=== PATIENT | female | born 2000 | race Caucasian/White ===

== ENCOUNTER 2020-04-16 10:24 | Inpatient (IN) ==
[2020-04-16] MEDS ORDERED: OXYTOCIN 30 UNITS/500 ML BAG IV PRN ×2 (13:14)
[2020-04-16] MEDS ORDERED: CEFAZOLIN 1000MG 1,000 MG/7.5 ML SYR IV PRN (13:14)
[2020-04-16 13:45] LABS: Hematocrit (blood only) 27.4 % (37-47); Hemoglobin 8.2 g/dL (12.0-16.0); Mean Corpuscular Hemoglobin 20.9 pg (25-34); Mean Corpuscular Volume 69.7 fL (80-100); Mean Platelet Volume 8.2 fL (7.4-10.4); Nucleated RBC # (auto) 0.11 K/uL (0-0); Nucleated RBC % (auto) 0.8 %; Platelet Count 380 K/uL (130-400); RDW Coefficient of Variation 17.6 % (11.5-14.5); RDW Standard Deviation 44.8 fL (36.4-46.3); Red Blood Count 3.93 M/uL (4.2-5.4); White Blood Count 12.81 K/uL (4.8-10.8)
[2020-04-16 13:52] LABS: Mean Corpuscular Hgb Conc 29.9 g/dL (32-36)
[2020-04-16] MEDS: LACTATED RINGER'S 1,000 ML IV PRN ×2 (13:53→19:58)
[2020-04-16] MEDS ORDERED: CEFAZOLIN 2000MG 2,000 MG/15 ML SYR IV ONE (14:00)
[2020-04-16] MEDS ORDERED: SODIUM CHLORIDE 0.9% 250 ML IV PRN (15:30)
--- NOTE | 2020-04-16 17:32 | History & Physical Report ---
Date of Service April 16, 2020 Assessment & Plan (1) Supervision of normal intrauterine in multigravida: 19yo at 39.1 weeks GA. Presents for elective IOL. 1. Fetus: Cat 1 2. Labor: Will start oxytocin and AROM when able 3. Vitals: WNL 4. GBS positive: Ancef for PCN allergy 5. Epidural PRN Admission and Anticipated Discharge Date Admission Date: April 16, 2020 History of Present Illness Primary Care Provider: NO PCP 19yo at 39.1 weeks GA. Presents for elective IOL. complicated by moderate anemia at 28 week labs and GBS positive. Reports prior uncomplicated . OB Labs: Blood Type O Positive 09/17/19 Antibody Screen NEGATIVE 09/17/19 Hemoglobin 9.5 g/dL (12.0-16.0) L 01/29/20 Hematocrit 30.6 % (37-47) L 01/29/20 Mean Corpuscular Volume 84.7 fL (80-100) 09/17/19 Platelet Count 376 K/uL (130-400) 09/17/19 Rubella IgG Antibody Immune (Immune) 09/17/19 Rapid Plasma Reagin Nonreactive (Nonreactive) 09/17/19 Hepatitis B Surface Antigen Neg (Neg) 09/17/19 HIV (1&2) Ab and P24 Ag, 4th Gener Neg (Neg) 09/17/19 Glucose 1 Hour 50 gm Load 87 mg/dl (70-130) 01/29/20 OB Optional Labs: Chlamydia trachomatis RNA NOT DETECTED (NOT DETECTED) 09/17/19 Neisseria gonorrhoeae RNA NOT DETECTED (NOT DETECTED) 09/17/19 Thyroid Stimulating Hormone (TSH) 2.530 uIu/ml (0.300-4.500) 10/11/18 Allergies Allergy/AdvReac Type Severity Reaction Status Date / Time amoxicillin Allergy Mild Hives Verified 04/16/20 12:44 gluten Allergy Mild Gastrointestinal Verified 04/16/20 12:44 Upset Home Medications Home Medications Medication Instructions Recorded Confirmed Type prenat.vits,oleg,jpy-ivcl-kyzle 1 tab PO DAILY 09/11/19 04/16/20 History Patient History Medical History (Updated 11/01/19 @ 15:34 by Roger Velasquez Jr, MD, FACOG) Adverse reaction to anesthetic agent Vomiting and Nausea Breast lump Breast lump Celiac disease Dysfunctional uterine bleeding Encounter for pre-operative examination Fibroadenoma of left breast GERD (gastroesophageal reflux disease) History of ovarian cyst Migraine Nausea and vomiting after administration of anesthetic agent Varicella vaccination Surgical History H/O breast surgery (06/26/19) Excision of left breast mass. Dr. Jones 06/26/19 H/O endoscopy H/O laparoscopy H/O oral surgery FOR EXTRA TOOTH REMOVAL Hx of cholecystectomy Family History Grandmother (Maternal) Endometriosis Aunt Endometriosis Breast cancer great aunt mom's side and dad's side Mother Thyroid disease Grandmother (Paternal) Breast cancer great grandmother Family/Other Colorectal cancer Great Granfather Social History Smoking Status: Never smoker Second Hand Exposure: No; Hx Alcohol Use: No Hx Substance Use: No Preferred Language: Latvian Communication Ability: Effective Activities Director Scouting Required: No Beliefs That Will Affect Care: None marital status: marital status details: Alessio Gifford (25) [phone] Current Living Situation: Spouse Current Living Situation Comment: lives with FOB, son and 2 dogs current occupational status: employed current occupation: Second Chef Other Information That Helps Us Care for You: No Feels Safe at Home: Yes Safety Concerns: Feels Safe At This Time Assistive Devices: None Physical Exam Constitutional: WD/WN, vitals as above Eyes: PERRL, conjunctivae normal, anicteric sclerae ENMT: external ear and nose normal, oropharynx normal Neck: trachea midline, no thyromegaly Gastrointestinal (Abdomen): Percussion/Palpation: abdomen soft; abdomen nontender, no guarding and abdomen not rigid Psychiatric: A+Ox3, euthymic affect Genitourinary: Manual OB Exam: + cervical dilation (2.5), + cervical effacement 70% and + station -2 OB Exam Monitor Tracing: + external FHT monitor used, + external uterine monitor used, + category I and + normal FHT variability; no early decelerations present, no late decelerations present and no variable decelerations Results & Data ([facility]) Vital Signs (Past 12 Hours) Vital Signs Temp Pulse Resp BP Pulse Ox 04/16/20 17:21 105 H 100 04/16/20 17:16 108 H 100 04/16/20 17:11 108 H 100 04/16/20 17:06 101 H 100 04/16/20 17:01 97 H 100 04/16/20 16:56 108 H 100 04/16/20 16:51 106 H 100 04/16/20 16:50 96 H 109/64 04/16/20 16:46 99 H 100 04/16/20 16:41 97 H 100 04/16/20 16:36 108 H 100 04/16/20 16:31 102 H 100 04/16/20 16:26 103 H 100 04/16/20 16:21 107 H 100 04/16/20 16:16 106 H 100 04/16/20 16:11 100 H 100 04/16/20 15:50 96 H 108/65 04/16/20 15:00 37.0 C 20 04/16/20 14:51 94 H 107/62 04/16/20 13:49 97 H 116/70 04/16/20 12:42 36.8 C 109 H 20 124/77 Coding Level of Care Code None Diagnoses Supervision of normal intrauterine in multigravida Z34.80
--- NOTE | 2020-04-16 19:54 | Labor Progress Brief Note ---
Date of Service April 16, 2020 Subjective Reason For Note: Routine Evaluation Assessment & Plan (1) Supervision of normal intrauterine in multigravida: 19yo at 39.1 weeks GA. Presents for elective IOL. 1. Fetus: Cat 1 2. Labor: Continue oxytocin, AROM clr 3. Vitals: WNL 4. GBS positive: Ancef for PCN allergy 5. Epidural PRN Admission and Anticipated Discharge Date Admission Date: April 16, 2020 Physical Exam Genitourinary: Manual OB Exam: + cervical dilation (4), + cervical effacement 70% and + station -2 OB Exam Monitor Tracing: + external FHT monitor used, + external uterine monitor used, + category I and + normal FHT variability; no early decelerations present, no late decelerations present and no variable decelerations Lymphatic: no cervical or axillary lymphadenopathy Results & Data ([facility]) Vital Signs (Past 12 Hours) Vital Signs Temp Pulse Resp BP Pulse Ox 04/16/20 19:50 105 H 114/60 04/16/20 19:37 100 H 99 04/16/20 19:32 93 H 100 04/16/20 19:27 97 H 100 04/16/20 19:22 101 H 100 04/16/20 19:17 93 H 100 04/16/20 19:12 102 H 100 04/16/20 19:08 36.5 C 18 04/16/20 19:07 106 H 100 04/16/20 19:02 102 H 100 04/16/20 18:57 96 H 99 04/16/20 18:52 99 H 99 04/16/20 18:49 103 H 106/62 04/16/20 18:47 99 H 100 04/16/20 18:42 105 H 99 04/16/20 18:37 109 H 100 04/16/20 18:32 106 H 100 04/16/20 18:27 101 H 100 04/16/20 18:22 111 H 100 04/16/20 18:17 101 H 99 04/16/20 18:12 107 H 100 04/16/20 18:07 99 H 100 04/16/20 18:01 97 H 100 04/16/20 17:56 103 H 100 04/16/20 17:51 96 H 111/56 L 100 04/16/20 17:46 95 H 100 04/16/20 17:41 111 H 100 04/16/20 17:36 102 H 100 04/16/20 17:31 101 H 100 04/16/20 17:26 108 H 100 04/16/20 17:21 105 H 100 04/16/20 17:16 108 H 100 04/16/20 17:11 108 H 100 04/16/20 17:06 101 H 100 04/16/20 17:01 97 H 100 04/16/20 16:56 108 H 100 04/16/20 16:51 106 H 100 04/16/20 16:50 96 H 109/64 04/16/20 16:46 99 H 100 04/16/20 16:41 97 H 100 04/16/20 16:36 108 H 100 04/16/20 16:31 102 H 100 04/16/20 16:26 103 H 100 04/16/20 16:21 107 H 100 04/16/20 16:16 106 H 100 04/16/20 16:11 100 H 100 04/16/20 15:50 96 H 108/65 04/16/20 15:00 37.0 C 20 04/16/20 14:51 94 H 107/62 04/16/20 13:49 97 H 116/70 04/16/20 12:42 36.8 C 109 H 20 124/77 Coding Level of Care Code None Diagnoses Supervision of normal intrauterine in multigravida Z34.80
--- NOTE | 2020-04-16 23:49 | Delivery Summary ---
Vaginal Delivery Summary Date of Service April 16, 2020 Vaginal Delivery Summary Vaginal Delivery Summary: Pre-delivery diagnoses: 19yo @ 39 3/7, spont labor Post-delivery diagnoses: same Procedure: spontaneous vaginal delivery, repair of 2nd degree laceration Surgeon: Valentina Spivey DO Complications: none Findings: Viable . Apgars: 8/9 . Weight pending, please see nursery records. Estimated blood loss: 300ml Description of delivery: The patient progressed to complete without anesthesia. She then began to push. I was called in to help with delivery, as on-call physician was taking care of another emergent patient. She spontaneously va ginally delivered a viable from the cephalic presentation. Nuchal x 1, reduced. The head delivered in ELIZABETH position. The anterior shoulder delivered, followed by the posterior shoulder, followed by the body. The baby was placed on mother's abdomen and a spontaneous cry was heard. Delayed cord clamping was employed, and the cord was doubly clamped and cut. Cord blood was obtained. The placenta was delivered spontaneously intact with a 3-vessel cord. The uterus and vagina were swept of clots and debris. IV pitocin was given. The uterus became firm. The cervix, vagina, and perineum were inspected and a 2nd degree laceration was noted. Repaired in standard fashion with 3-0 vicryl. Excellent hemostasis was observed. The mother and baby are recovering in stable and good condition in the room. Sponge, needle and instrument counts were correct x 2. Valentina Spivey DO [facility] [place] Vaginal Delivery Charge Vaginal Delivery Codes: 40068 global code for the antepartum, delivery, and post-
[2020-04-17] MEDS ORDERED: bisacodyL 10 MG SUPP PR PRN (00:16)
[2020-04-17] MEDS ORDERED: OXYTOCIN 30 UNITS/500 ML BAG IV PRN (00:16)
[2020-04-17] MEDS ORDERED: OXYCODONE/ACETAMINOPHEN 5mg/325mg TAB PO PRN (00:16)
[2020-04-17] MEDS ORDERED: DIPHTHERIA/TETANUS/PERTUSSIS 0.5 ML SYR/VIAL IM ONE (00:16)
[2020-04-17] MEDS ORDERED: BENZOCAINE 20% AER SPR 82.5 GM CAN EXT PRN (00:16)
[2020-04-17] MEDS ORDERED: SUPERCREAM 0.870% 15 GM JAR EXT PRN (00:16)
[2020-04-17] MEDS ORDERED: ACETAMINOPHEN 325 MG TAB PO PRN (00:16)
[2020-04-17] MEDS ORDERED: HYDROCORTISONE ACETATE 25 MG SUPP PR PRN (00:16)
--- NOTE | 2020-04-17 05:44 | Obstetrical Progress Note ---
Date of Service April 17, 2020 Assessment & Plan (1) : S/p after elective IOL, Day 1 - Feels well today. Eating well, voiding well, ambulating well. - Pain well-controlled with ibuprofen 600mg Q4H PRN. - Vital signs reviewed and WNL. - Hemoglobin reviewed. 8.2 --> 7.1 (today). - started Iron sulfate BID today - Blood Type: O+, antibody negative, GBS negative, Rubella Immune, COVID-19 negative - Continue routine post- care: encourage ambulation, monitor and control pain with Motrin PRN, continue regular OB diet, monitor lochia - Encourage breast feeding. - After discharge, will have 6-wk follow-up with [facility] [employer]NA[facility] [employer] Admission and Anticipated Discharge Date Admission Date: April 16, 2020 Supervising Physician Co-Signing Physician Notes Patient seen and evaluated and agree with the above findings and plan. Routine care. H/H at 7.1/24.1 today from 8.2/27.4 on admission. Denies any anemia symptoms. On iron BID Subjective HPI Raffaele Gifford is a 19 y/o female who is PPD 1 spontaneous vaginal delivery after elective IOL at 39 3/7 weeks. She reports feeling well overall this morning. No abdominal cramping and 1-4/10 pain well managed on analgesics. Voiding well. Tolerating meals overnight without difficulty. Patient has been able to ambulate some. passing gas and no bowel movement. Has persistent lochia with some improvement this morning. Currently bottle feeding with formula. Review of Systems Review of Systems: ROS Denies fever or chills. Denies dizziness or near-syncope. Denies shortness of breath or cough. Denies chest pain. Denies breast pain. Denies dysuria. Denies leg pain or leg swelling. Physical Exam Physical Exam: PE General: Alert, oriented. No acute distress. Cardiac: Regular rate and rhythm. No murmurs. Respiratory: Clear to auscultation bilaterally a/p, no wheezes/rales/rhonchi. No increased work of breathing. Symmetrical chest rise. No respiratory distress. Abdomen: Soft, nontender, nondistended. Bowel sounds present. Uterus: Uterine fundus firm, palpable 1 cm below umbilicus. Lower Extremities: No lower extremity edema or swelling. No deep calf pain. Jason's negative bilaterally. Results & Data ([facility]) Vital Signs (Past 12 Hours) Vital Signs Temp Pulse Pulse Resp BP BP Pulse Ox 04/17/20 02:50 36.6 C 105 H 18 127/84 99 04/17/20 01:22 104 H 102/57 L 04/17/20 01:07 105 H 106/63 04/17/20 00:52 101 H 106/58 L 04/17/20 00:37 103 H 98/54 L 04/17/20 00:22 95 H 101/58 L 04/17/20 00:07 99 H 99/58 L 04/16/20 23:52 104 H 102/59 L 04/16/20 23:45 104 H 104/57 L 04/16/20 23:38 121 H 114/60 04/16/20 23:20 121 H 109/56 L 04/16/20 20:49 98 H 118/71 04/16/20 19:59 36.8 C 04/16/20 19:50 105 H 114/60 04/16/20 19:37 100 H 99 04/16/20 19:32 93 H 100 04/16/20 19:27 97 H 100 04/16/20 19:22 101 H 100 04/16/20 19:17 93 H 100 04/16/20 19:12 102 H 100 04/16/20 19:08 36.5 C 18 04/16/20 19:07 106 H 100 04/16/20 19:02 102 H 100 04/16/20 18:57 96 H 99 04/16/20 18:52 99 H 99 04/16/20 18:49 103 H 106/62 04/16/20 18:47 99 H 100 04/16/20 18:42 105 H 99 04/16/20 18:37 109 H 100 04/16/20 18:32 106 H 100 04/16/20 18:27 101 H 100 04/16/20 18:22 111 H 100 04/16/20 18:17 101 H 99 04/16/20 18:12 107 H 100 04/16/20 18:07 99 H 100 04/16/20 18:01 97 H 100 04/16/20 17:56 103 H 100 04/16/20 17:51 96 H 111/56 L 100 04/16/20 17:46 95 H 100 04/16/20 17:41 111 H 100 Resident Activity Tracking Resident Involvement: Resident Care Provided Care Provided: OB Delivery
[2020-04-17 05:51] LABS: Hematocrit (blood only) 24.1 % (37-47); Hemoglobin 7.1 g/dL (12.0-16.0)
[2020-04-17] MEDS: DOCUSATE SODIUM 100 MG CAP PO SCH ×2 (07:37→20:35)
[2020-04-17] MEDS: PRENATAL VITAMIN 1 TAB PO SCH (07:37)
[2020-04-17] MEDS: IBUPROFEN 600 MG TAB PO PRN ×2 (07:38→16:25)
[2020-04-17] MEDS: FERROUS SULFATE 325 MG TAB PO SCH (16:25)
[2020-04-17] MEDS ORDERED: bisacodyL 5 MG TABEC PO SCH (20:00)
--- NOTE | 2020-04-18 04:46 | Obstetrical Progress Note ---
Date of Service April 18, 2020 Assessment & Plan (1) : S/p after elective IOL, Day 2 - Feels well today. Eating well, voiding well, ambulating well. - Pain well-controlled with ibuprofen 600mg Q4H PRN. - Vital signs reviewed and WNL. - Hemoglobin reviewed. 8.2 --> 7.1 --> 6.6 (today) - started Iron sulfate BID yesterday - patient mildly hypotensive and intermittently tachycardic but otherwise no symptoms, feels well - will continue Iron supplement BID after discharge, as well as PRN miralax for constipation - Blood Type: O+, antibody negative, GBS negative, Rubella Immune, COVID-19 negative - Continue routine post- care: encourage ambulation, monitor and control pain with Motrin PRN, continue regular OB diet, monitor lochia - Patient has elected to bottle feed with formula - Went over discharge instructions today - After discharge, will have 6-wk follow-up with [facility] Admission and Anticipated Discharge Date Admission Date: April 16, 2020 Supervising Physician Co-Signing Physician Notes Resident Physician Supervision Note: I was present with Dr. Bah during the history and exam. I discussed the case with the resident and agree with the findings and plan as documented in the note. Any exceptions or clarifications are listed here: PPD#2 doing well. Hgb has been low, but vitals stable and she is asymptomatic. No weakness/dizziness. She is taking iron. I offered blood transfusion, but she feels that since she is not symptomatic, she does not desire transfusion at this time. DC instructions reviewed, followup in office . Documented By: Valentina Spivey, Subjective HPI Raffaele Gifford is a 19 y/o female who is PPD 2 spontaneous vaginal delivery after elective IOL at 39 3/7 weeks. She reports feeling well overall this morning. No abdominal cramping and 0-2/10 pain well managed on analgesics. Voiding well. Tolerating meals overnight without difficulty. Patient has been able to ambulate some. passing gas and no bowel movement. Has persistent lochia with some improvement this morning. Currently bottle feeding with formula. Review of Systems Review of Systems: ROS Denies fever or chills. Denies dizziness or near-syncope. Denies shortness of breath or cough. Denies chest pain. Denies breast pain. Denies dysuria. Denies leg pain or leg swelling. Physical Exam Physical Exam: PE General: Alert, oriented. No acute distress. Cardiac: Regular rate and rhythm. No murmurs. Respiratory: Clear to auscultation bilaterally a/p, no wheezes/rales/rhonchi. No increased work of breathing. Symmetrical chest rise. No respiratory distress. Abdomen: Soft, nontender, nondistended. Bowel sounds present. Uterus: Uterine fundus firm, palpable 4 cm below umbilicus. Lower Extremities: No lower extremity edema or swelling. No deep calf pain. Jason's negative bilaterally. Results & Data ([facility]) Vital Signs (Past 12 Hours) Vital Signs Temp Pulse Resp BP Pulse Ox 04/17/20 23:36 36.6 C 92 H 18 97/62 L 98 04/17/20 19:50 36.6 C 96 H 18 101/64 Resident Activity Tracking Resident Involvement: Resident Care Provided Care Provided: OB Delivery
[2020-04-18 06:09] LABS: Hematocrit (blood only) 23.4 % (37-47); Hemoglobin 6.6 g/dL (12.0-16.0)
[2020-04-18] MEDS: DOCUSATE SODIUM 100 MG CAP PO SCH (08:44)
[2020-04-18] MEDS: PRENATAL VITAMIN 1 TAB PO SCH (08:44)
[2020-04-18] MEDS: FERROUS SULFATE 325 MG TAB PO SCH (08:44)
[2020-04-18] MEDS: IBUPROFEN 600 MG TAB PO PRN (08:45)
[2020-04-18 10:07] VITALS: BP 103/65; PULSE 82; TEMP 97.7; O2SAT 99
== END 2020-04-18 12:05 | disposition home or self-care (01) | DRG 807 ==
LOC: 4S1 12:35 → 4S2 04-17 02:39

== ENCOUNTER 2024-04-04 07:55 | Inpatient (IN) ==
[2024-04-04] MEDS ORDERED: LIDOCAINE 1% LOCAL 20 ML VIAL INFIL PRN (08:02)
[2024-04-04] MEDS ORDERED: OXYTOCIN 30 UNITS/NSS 30 UNITS/500 ML BAG IV PRN ×2 (08:02→18:41)
[2024-04-04] MEDS ORDERED: CALCIUM CARBONATE 500 MG CHEWABLE TAB PO PRN (08:02)
[2024-04-04 08:50] LABS: Hematocrit (blood only) 30.4 % (37.0-47.0); Hemoglobin 9.5 g/dl (12.0-16.0); Mean Corpuscular Hemoglobin 22.9 pg (25.0-34.0); Mean Corpuscular Hgb Conc 31.3 g/dL (32.0-36.0); Mean Corpuscular Volume 73.4 fL (80.0-100.0); Mean Platelet Volume 8.4 fL (9.4-12.4); Nucleated RBC # (auto) 0.03 K/uL (0.00-0.12); Nucleated RBC % (auto) 0.3 %; Platelet Count 406 K/uL (130-400); RDW Coefficient of Variation 15.5 % (11.5-14.5); RDW Standard Deviation 40.6 fL (36.4-46.3); Red Blood Count 4.14 M/uL (4.20-5.40); White Blood Count 11.41 K/ul (4.8-10.8)
--- NOTE | 2024-04-04 09:27 | History & Physical Report ---
Date of Service April 04, 2024 Assessment & Plan (1) Encounter for supervision of normal in multigravida, antepartum: (2) LGA (large for gestational age) fetus affecting mother, antepartum: (3) Hypothyroidism during : Plan Raffaele is a 23 y/o female currently at 39W1D GA with an AQUILES 04/10/24 as determined by LMP who is here for induction. Her was complicated by hypothyroidism. GBS negative. Pt is not currently having regular contractions, but presenting at 4 cm dilated. Hbg at admission was 9.5. Starting pitocin Pt declining epidural at this time Monitor vitals and pain Ordered cross and match due to Hbg at 9.5 prior to delivery Admission and Anticipated Discharge Date Admission Date: April 04, 2024 History of Present Illness Primary Care Provider: NO PCP Raffaele is a 23 y/o female currently at 39W1D GA with an AQUILES 04/10/24 as determined by LMP who is here for induction. Her was complicated by hypothyroidism. irregular contractions; feeling movement; no fluid loss; no bloody show External FHT and external uterine monitors used; Category 1 tracing; moderate FHT variability. Had regular appointments with OB. Labs: (08/31/23) Blood type: O positive Antibody screen: Negative H.5 (today) Hct: 30.4 (today) WBC: 11.4 (today) Plt: 406 (today) Rubella: Immune VDRL/RPR: Non reactive Gonorrhea: Not detected Chlamydia: Not detected HIV: Nonreactive HbSAg: Non reactive GBS: Negative Other screens: Carrier for Gaucher disease and PKD cff-DNA: _ (see scanned documents) CF: Low risk-mln SMA: low risk Allergies Allergy/AdvReac Type Severity Reaction Status Date / Time amoxicillin Allergy Intermediate Hives Verified 04/04/24 08:22 gluten AdvReac Intermediate Gastrointestinal Verified 04/04/24 08:22 Upset Home Medications Medication Instructions Recorded Confirmed Type PNV no.[id number] 1 tab PO DAILY 08/24/23 04/04/24 History [ Gummies] famotidine 20 mg tablet (Pepcid) 20 mg PO DAILY PRN GERD 02/21/24 04/04/24 History levothyroxine 50 mcg tablet 50 mcg PO DAILY #90 tabs 02/21/24 04/04/24 Rx ergocalciferol (vitamin D2) 1,250 2,000 mcg PO DAILY 03/10/24 04/04/24 History mcg (50,000 unit) capsule Patient History Medical History (Updated 04/04/24 @ 09:35 by Radhika Wood DO) (spontaneous vaginal delivery) 2017 2019 SAB (spontaneous ) 2020 Celiac disease History of anemia significant anemia 03/2020 post-, patient monitored (she states no blood transfusion done) Vertigo Ovarian mass Migraine without aura GERD (gastroesophageal reflux disease) Migraine Hx Fibroadenoma of left breast History of ovarian cyst Dysfunctional uterine bleeding Surgical History History of removal of ovarian cyst History of esophagogastroduodenoscopy (EGD) Multiple H/O breast surgery Left breast biopsy (06/26/19): MAC at [facility] > "benign" H/O oral surgery Extra tooth extraction H/O laparoscopy Hx of cholecystectomy Family History Grandmother (Maternal) Endometriosis Aunt Breast cancer Endometriosis Mother Thyroid disease Family history of reaction to anesthesia Grandmother (Paternal) Breast cancer Family/Other Colorectal cancer Family history of reaction to anesthesia H/O: hysterectomy Denies family history of Ovarian cancer Prostate cancer Myocardial infarction Uterine cancer Social History Smoking Status: Never smoker Second Hand Exposure: Yes (MOTHER SMOKES); Do You Dip or Chew Tobacco: No; Hx Alcohol Use: No Hx Substance Use: No Preferred Language: Malay Communication Ability: Effective Visual Impairment: No Limitations Rehabilitation Team Lead Required: No Beliefs That Will Affect Care: None marital status: Single marital status details: Linda Velasquez (28) [phone] Current Living Situation: Family and Significant Other Current Living Situation Comment: lives with LINDA, sons and 2 dogs current occupational status: employed current occupation: [employer] Feels Safe at Home: Yes Safety Concerns: Feels Safe At This Time Diet: other Seatbelt Use: always Assistive Devices: Glasses Review of Systems Denies fever, chills, sweats Denies shortness of breath, difficulty breathing, chest pain, palpitations, chest pressure. Denies breast pain. Denies dysuria. Denies headache or changes in vision. Physical Exam Physical Exam: General: Alert, oriented. No acute distress. Cardiac: Regular rate and rhythm, no murmurs/rubs/gallops. Respiratory: Clear to auscultation bilaterally a/p, no wheezes/rales/rhonchi. No increased work of breathing. Symmetrical chest rise. No respiratory distress. Abdomen: Gravid; Pelvic: Dilation 4 cm; Effacement 80%; Station -[address] Spivey Lower Extremities: No lower extremity edema or swelling. No deep calf pain. Ajson's negative bilaterally Results & Data Vital Signs (Past 12 Hours) Vital Signs Temp Pulse Resp BP 04/04/24 08:19 36.7 C 18 04/04/24 08:09 86 111/67 Code Status & VTE Plan VTE Prophylaxis Plan VTE Prophylaxis will be ordered: No Supervising Physician Co-Signing Physician Notes Resident Physician Supervision Note: I interviewed and examined the patient. Discussed with Dr. Wood and agree with findings and plan as documented in the note. Any exceptions or clarifications are listed here: 23yo @ 39 07/31, IOL. Plan for pitocin, anticipate . Documented By: Valentina Spivey DO (3) Hypothyroidism during Trimester: third trimester Qualified Code(s): O99.283 - Endocrine, nutritional and metabolic diseases complicating , third trimester; E03.9 - Hypothyroidism, unspecified
[2024-04-04] MEDS: OXYTOCIN 30 UNITS/NSS 30 UNITS/500 ML BAG IV PRN (09:47)
[2024-04-04] MEDS: LACTATED RINGER'S 1,000 ML IV PRN (09:47)
--- NOTE | 2024-04-04 15:40 | Labor Progress Brief Note ---
Date of Service April 04, 2024 Subjective Feeling more pressure. FHT Cat 1 [place] Q 2-3 SVE 6//-2 AROM clear fluid. Anticipate . Assessment & Plan Admission and Anticipated Discharge Date Admission Date: April 04, 2024 Results & Data Vital Signs (Past 12 Hours) Vital Signs Temp Pulse Resp BP 04/04/24 15:00 18 04/04/24 15:00 36.8 C 04/04/24 14:49 90 118/67 04/04/24 13:50 90 120/66 04/04/24 12:49 93 H 110/65 04/04/24 11:50 95 H 109/65 04/04/24 11:01 18 04/04/24 11:01 37.1 C 04/04/24 10:48 90 111/68 04/04/24 09:48 90 108/62 04/04/24 08:19 36.7 C 04/04/24 08:09 86 111/67 Coding Level of Care Code None
--- NOTE | 2024-04-04 18:02 | Delivery Summary ---
Vaginal Delivery Summary Date of Service April 04, 2024 Vaginal Delivery Summary and 1st Degree LAC Vaginal Delivery Summary: Pre-delivery diagnoses: 23yo @ 39 1/, IOL Post-delivery diagnoses: same Procedure: spontaneous vaginal delivery Surgeon: Valentina Spivey DO Complications: none Findings: Viable female . Apgars: 8/9. Weight pending, please see nursery records. Estimated QBL blood loss: 103cc Description of delivery: The patient progressed to complete without anesthesia. She then began to push. She spontaneously vaginally delivered a viable from the cephalic presentation. The head delivered in ELIZABETH position. Compound right hand. The anterior shoulder delivered, followed by the posterior shoulder, followed by the body. The baby was placed on mother's abdomen and a spontaneous cry was heard. Delayed cord clamping was employed, and the cord was doubly clamped and cut. Cord blood was obtained. The placenta was delivered spontaneously intact with a 3-vessel cord. The uterus and vagina were swept of clots and debris. IV pitocin was given. The uterus became firm. The cervix, vagina, and perineum were inspected and no lacerations were noted. Excellent hemostasis was observed. The mother and baby are recovering in stable and good condition in the room. Sponge and instrument counts were correct x 2. Valentina Spivey DO [facility] [place] Vaginal Delivery Charge Vaginal Delivery Codes: 92835 global code for the antepartum, delivery, and post- Delivery Type Details: and 1st Degree LAC
[2024-04-04] MEDS ORDERED: oxyCODONE/ACETAMINOPHEN 5mg/325mg TAB PO PRN (18:41)
[2024-04-04] MEDS ORDERED: bisacodyL 10 MG SUPP PR PRN (18:41)
[2024-04-04] MEDS ORDERED: HYDROCORTISONE ACETATE 25 MG SUPP PR PRN (18:41)
[2024-04-04] MEDS ORDERED: FAMOTIDINE 20 MG TAB PO PRN (18:41)
[2024-04-04] MEDS ORDERED: DIPHTHER/TETAN/PERTUS Vaccine (Tdap, Adol/Adult) 0.5mL IM ONE (18:41)
[2024-04-04] MEDS ORDERED: BENZOCAINE 20% SPRY 85 APPLN/85 GM CAN EXT PRN (18:41)
[2024-04-04] MEDS: DOCUSATE SODIUM 100 MG CAP PO SCH (21:23)
--- NOTE | 2024-04-05 05:30 | Obstetrical Progress Note ---
Date of Service April 05, 2024 Assessment & Plan (1) Encounter for care and examination after delivery: (2) LGA (large for gestational age) fetus affecting mother, antepartum: (3) Hypothyroidism during : Plan Pt is 23 yo post- day 1 s/p at 39w1d. complicated by hypothyroidism and LGA Patient is doing well today, Hbg and vitals are stable Encourage ambulation and breast feeding Consult with beef specialist Ibuprofen 600mg PRN q4h and Tylenol 600mg PRN q6H for pain control Monitor vitals Upon discharge, pt to follow up with Dr. Spivey in 6 weeks Admission and Anticipated Discharge Date Admission Date: April 04, 2024 Supervising Physician Co-Signing Physician Notes Resident Physician Supervision Note: I interviewed and examined the patient. Discussed with Dr. Wood and agree with findings and plan as documented in the note. Any exceptions or clarifications are listed here: PPD#1 doing well. Desires DC home today. Reviewed DC instructions, followup in office 6w PP. Documented By: Valentina Spivey, Subjective Pt is 23 yo post- day 1 s/p at 39w1d. complicated by hypothyroidism and LGA Ambulation:In and out of room Voiding:voiding normally Passing gas: yes BM: no Diet tolerance:regular diet Lochia:bloody, no clots Feeding type: formula, but would like to switch to breast with assist from beef specialist Current pain level: 0-1 /10 improved with ibuprofen Resting comfortably this morning in NAD. Denies HUDSON, CP, SOB, N/V/D, LE pain/swelling. Review of Systems Review of Systems: As per HPI Physical Exam Constitutional: WD/WN, vitals as above Respiratory: normal respiratory effort, lungs clear to auscultation Cardiovascular: RRR, no murmur, no edema Gastrointestinal (Abdomen): normal bowel sounds, soft, nontender, no hepatosplenomegaly Uterine fundus firm and at 1 cm below umbilicus Neurologic: PERRL, EOMI, accommodation nl, no face palsy, no dysarthria Moving all 4 extremities on command Psychiatric: A+Ox3, euthymic affect Results & Data Vital Signs (Past 12 Hours) Vital Signs Temp Pulse Pulse Resp BP BP Pulse Ox 04/05/24 04:00 36.6 C 88 16 105/72 98 04/04/24 23:30 36.7 C 80 18 105/70 99 04/04/24 21:00 36.5 C 86 16 98/62 L 97 04/04/24 19:45 85 104/59 L 04/04/24 19:30 90 100/56 L 04/04/24 19:15 83 100/58 L 04/04/24 19:00 36.9 C 18 04/04/24 19:00 88 115/55 L 04/04/24 18:45 96 H 114/58 L 04/04/24 18:30 92 H 116/61 04/04/24 18:15 97 H 117/58 L 04/04/24 18:01 106 H 110/54 L 04/04/24 17:50 112 H 129/88 O2 Del Method 04/05/24 04:00 Room Air 04/04/24 23:30 Room Air 04/04/24 21:00 Room Air 04/04/24 19:45 04/04/24 19:30 04/04/24 19:15 04/04/24 19:00 04/04/24 19:00 04/04/24 18:45 04/04/24 18:30 04/04/24 18:15 04/04/24 18:01 04/04/24 17:50 Resident Activity Tracking Resident Involvement: Resident Care Provided Care Provided: [facility] Medicine and OB Delivery (3) Hypothyroidism during Trimester: third trimester Qualified Code(s): O99.283 - Endocrine, nutritional and metabolic diseases complicating , third trimester; E03.9 - Hypothyroidism, unspecified
[2024-04-05] MEDS: LEVOTHYROXINE SODIUM 100 MCG TABLET PO SCH (06:22)
[2024-04-05 07:01] LABS: Hematocrit (blood only) 29.2 % (37.0-47.0); Hemoglobin 8.8 g/dl (12.0-16.0)
[2024-04-05] MEDS: PRENATAL VITAMIN 1 TAB PO SCH (07:43)
[2024-04-05] MEDS: IBUPROFEN 600 MG TAB PO PRN (10:55)
[2024-04-05] MEDS: ACETAMINOPHEN 325 MG TAB PO PRN (10:55)
[2024-04-05 11:40] VITALS: TEMP 98.4; O2SAT 98
[2024-04-05 15:53] VITALS: BP 98/67; PULSE 91; RESP 16
[2024-04-05] MEDS ORDERED: bisacodyL 5 MG TABEC PO SCH (20:00)
[2024-04-06] MEDS ORDERED: LEVOTHYROXINE SODIUM 50 MCG TABLET PO SCH (06:30)
== END 2024-04-05 19:45 | disposition home or self-care (01) | DRG 807 ==
LOC: 4S1 07:55 → 4E2 20:13
DX: Z88.0 Allergy status to penicillin; Z3A.39 39 weeks gestation of pregnancy; O99.283 Endocrine, nutritional and metabolic diseases complicating pregnancy, third trimester; E03.9 Hypothyroidism, unspecified; O36.63X0 Maternal care for excessive fetal growth, third trimester, not applicable or unspecified; Z79.890 Hormone replacement therapy; Z91.018 Allergy to other foods; Z77.22 Contact with and (suspected) exposure to environmental tobacco smoke (acute) (chronic); Z37.0 Single live birth